=== PATIENT | female | born 1980 | race Caucasian/White ===

== ENCOUNTER 2018-12-11 08:09 | Emergency (ER) | payer MEDICAID ==
[~2018-12-11] VITALS: Ht 165.1 cm; Wt 82.0 kg
[~2018-12-11 08:09] MED LIST: GABA-530 PO; MIRENA IUD TD
[2018-12-11 08:27] VITALS: BP 151/100
[2018-12-11] MEDS ORDERED: PRED20TA PO (08:45)
[2018-12-11] MEDS ORDERED: AZIT-72 PO (08:45)
[2018-12-11] MEDS ORDERED: predniSONE 20 mg tablet PO ONE (08:45)
== END 2018-12-11 09:02 | disposition home or self-care (01) ==
LOC: ER 08:11
DX: J20.9 Acute bronchitis, unspecified (principal); H92.01 Otalgia, right ear; F12.90 Cannabis use, unspecified, uncomplicated; F10.99 Alcohol use, unspecified with unspecified alcohol-induced disorder; Z56.0 Unemployment, unspecified; Z88.9 Allergy status to unspecified drugs, medicaments and biological substances; Z91.040 Latex allergy status; Z79.899 Other long term (current) drug therapy; Y90.9 Presence of alcohol in blood, level not specified
CPT/HCPCS: 99283; J7512